=== PATIENT | female | born 1990 | race Caucasian/White ===

== ENCOUNTER 2024-03-10 21:20 | Emergency (ER) | payer OTHER ==
[2024-03-10 21:30] VITALS: BMI 34.3
[2024-03-10 23:13] VITALS: BP 114/63; PULSE 74; RESP 18; TEMP 98
[2024-03-24] MEDS ORDERED: OXYTOCIN 20 UNITS in 0.9% NS 20 UNIT/1,000 ML INFUS.BAG IV ONE (16:48)
== END 2024-03-10 23:50 | disposition home or self-care (01) ==
LOC: JERFT 21:20 → JER 21:20
DX: O9A.213 Injury, poisoning and certain other consequences of external causes complicating pregnancy, third trimester (principal); O99.891 Other specified diseases and conditions complicating pregnancy; M25.561 Pain in right knee; M25.461 Effusion, right knee; V00.141A Fall from scooter (nonmotorized), initial encounter; Z3A.36 36 weeks gestation of pregnancy
CPT/HCPCS: 73562-TC-RT-FY; 99283-25

== ENCOUNTER 2024-03-21 10:22 | Inpatient (IN) | payer OTHER ==
[2024-03-21 11:07] VITALS: BMI 33.3
[2024-03-21 11:45] LABS: BASO % 0.5 % (0-2.0); EOS % 1.3 % (0-4.5); HEMATOCRIT 30.5 % (32.4-45.2); HEMOGLOBIN 10.6 GM/dL (10.7-15.3); LYMPH % 28.6 % (8-40); MCH 31.3 pg (25.7-33.7); MCHC 34.8 g/dl (32.0-36.0); MEAN PLT VOLUME 7.6 fl (7.5-11.1); MONO % 10.3 % (3.8-10.2); NEUT % 59.3 % (42.8-82.8); PLATELET COUNT 251 10^3/uL (134-434); RBC 3.39 M/mm3 (3.60-5.2); RDW 12.9 % (11.6-15.6); WHITE BLOOD COUNT 5.2 K/mm3 (4.0-10.0)
[2024-03-21 12:04] LABS: POTASSIUM 3.5 mmol/L (3.5-5.1)
[2024-03-21 12:06] LABS: ALBUMIN 2.3 g/dl (3.4-5.0); BLOOD UREA NITROGEN 6.9 mg/dL (7-18); CALCIUM 8.1 mg/dL (8.5-10.1)
[2024-03-21 12:09] LABS: CREATININE 0.5 mg/dL (0.55-1.3)
[2024-03-21 12:11] LABS: BILIRUBIN,TOTAL 0.6 mg/dL (0.2-1); TOT PROT 5.2 g/dl (6.4-8.2)
[2024-03-21 20:30] VITALS: RESP 18
[2024-03-21 21:16] LABS: BASO % 0.5 % (0-2.0); EOS % 1.2 % (0-4.5); HEMATOCRIT 31.9 % (32.4-45.2); HEMOGLOBIN 10.9 GM/dL (10.7-15.3); LYMPH % 28.2 % (8-40); MCH 30.9 pg (25.7-33.7); MCHC 34.1 g/dl (32.0-36.0); MEAN CELL VOLUME 90.7 fl (80-96); MONO % 7.2 % (3.8-10.2); NEUT % 62.9 % (42.8-82.8); PLATELET COUNT 267 10^3/uL (134-434); RBC 3.52 M/mm3 (3.60-5.2); RDW 12.8 % (11.6-15.6)
[2024-03-21 21:21] LABS: INR 0.98 (0.83-1.09); PROTHROMBIN TIME (PATIENT) 11.3 SEC (9.7-13.0)
[2024-03-21 21:24] LABS: ACTIVATED PTT 29.9 SECONDS (25.2-36.5)
[2024-03-21] MEDS: LACTATED RINGERS SOLUTION 1,000 ML IV SCH (21:36)
[2024-03-21 21:46] LABS: POTASSIUM 3.3 mmol/L (3.5-5.1)
[2024-03-21 21:48] LABS: CALCIUM 7.9 mg/dL (8.5-10.1)
[2024-03-21 21:49] LABS: ALBUMIN 2.1 g/dl (3.4-5.0)
[2024-03-21 21:53] LABS: CREATININE 0.5 mg/dL (0.55-1.3)
[2024-03-21 21:54] LABS: BILIRUBIN,TOTAL 0.6 mg/dL (0.2-1)
[2024-03-21 22:08] LABS: HEPATITIS B SURFACE AG MATERN NON-REACTIVE (NONREACTIVE); SYPHILIS W/ RPR CONF NON-REACTIVE (NONREACTIVE)
[2024-03-21 22:33] LABS: EPI CELLS >36 /uL (0-25.1); HYALINE CASTS 2 /uL (0-3.1); PH,URINE 8.5 (5.0-8.0); URINE APPEARANCE CLOUDY; URINE BACTERIA 2829 /uL (0-1359); URINE BILIRUBIN NEGATIVE (NEGATIVE); URINE COLOR YELLOW; URINE GLUCOSE (UA) NEGATIVE (NEGATIVE); URINE KETONE TRACE (NEGATIVE); URINE LEUK ESTERASE 2+ (NEGATIVE); URINE NITRITE NEGATIVE (NEGATIVE); URINE PROTEIN NEGATIVE (NEGATIVE); URINE RBC 12 /uL (0-23.9); URINE WBC 50 /uL (0-25.8)
[2024-03-21 22:36] LABS: HIV INTERPRETATION NEGATIVE (NEGATIVE)
[2024-03-21 22:39] LABS: METHADONE, UR NEGATIVE (NEGATIVE); OPIATES, URI NEGATIVE (NEGATIVE); PHENCYCLIDINE,URINE NEGATIVE (NEGATIVE); URINE AMPHETAMINES NEGATIVE (NEGATIVE); URINE BARBITURATES NEGATIVE (NEGATIVE); URINE BENZODIAZEPINES NEGATIVE (NEGATIVE)
[2024-03-21 22:51] LABS: COCAINE, UR POSITIVE (NEGATIVE)
[2024-03-22 09:06] VITALS: BP 112/81; PULSE 98; TEMP 98
[2024-03-22] MEDS ORDERED: BISACODYL 10 MG SUPP.RECT PR PRN (09:43)
[2024-03-22] MEDS ORDERED: SENNOSIDES/DOCUSATE COMBO (SENNA PLUS) TABLET (UD) PO PRN (09:52)
[2024-03-22] MEDS: PRENATAL VITAMINS W/ FOLIC ACID TABLET (FP) PO SCH (10:12)
[2024-03-22] MEDS: DOCUSATE SODIUM 100 MG CAPSULE (FP) PO SCH (10:12)
[2024-03-22] MEDS: NITROFURANTOIN MONOHYD/M-CRYST 100 MG CAPSULE PO SCH (10:39)
== END 2024-03-22 12:26 | disposition home or self-care (01) | DRG 560 ==
LOC: JER 10:22 → JERBED 18:13 → JLDR 19:54 → J3W 23:40
PROVIDERS: ADMIT Obstetrics & Gynecology Obstetrics; ATTEND Obstetrics & Gynecology Obstetrics
DX: O99.324 Drug use complicating childbirth (principal); F11.23 Opioid dependence with withdrawal; Z3A.33 33 weeks gestation of pregnancy
CPT/HCPCS: 36415; 76819-TC; 80053; 80307; 81003; 84702; 85025; 85610; 85730; 86780; 86803; 86850; 86900; 86901; 87340; 87389; 93005; 93010; 99285-25

== ENCOUNTER 2024-03-24 16:30 | Inpatient (IN) | payer OTHER ==
[2024-03-24] MEDS: OXYTOCIN 20 UNITS in 0.9% NS 20 UNIT/1,000 ML INFUS.BAG IV SCH (17:00)
[2024-03-24] MEDS ORDERED: ACETAMINOPHEN 325 MG TABLET (FP) ONE (17:20)
[2024-03-24] MEDS ORDERED: IBUPROFEN 600 MG TABLET (FP) PO ONE (17:21)
[2024-03-24] MEDS: IBUPROFEN 600 MG TABLET (FP) PO PRN (17:30)
[2024-03-24] MEDS: ACETAMINOPHEN 325 MG TABLET (FP) PO PRN (17:30)
[2024-03-24 17:56] VITALS: BMI 32.3
[2024-03-24 20:05] VITALS: RESP 18
[2024-03-24 21:05] LABS: METHADONE, UR NEGATIVE (NEGATIVE); PHENCYCLIDINE,URINE NEGATIVE (NEGATIVE); URINE BENZODIAZEPINES NEGATIVE (NEGATIVE)
[2024-03-24 21:06] LABS: OPIATES, URI NEGATIVE (NEGATIVE); URINE AMPHETAMINES NEGATIVE (NEGATIVE); URINE BARBITURATES NEGATIVE (NEGATIVE)
[2024-03-24 21:08] LABS: COCAINE, UR POSITIVE (NEGATIVE)
[2024-03-25 09:01] LABS: BASO % 0.2 % (0-2.0); EOS % 0.7 % (0-4.5); HEMOGLOBIN 10.1 GM/dL (10.7-15.3); LYMPH % 13.7 % (8-40); MCH 31.2 pg (25.7-33.7); MEAN PLT VOLUME 8.6 fl (7.5-11.1); NEUT % 79.4 % (42.8-82.8); PLATELET COUNT 226 10^3/uL (134-434); RBC 3.25 M/mm3 (3.60-5.2); RDW 12.7 % (11.6-15.6); WHITE BLOOD COUNT 10.6 K/mm3 (4.0-10.0)
[2024-03-25] MEDS: NITROFURANTOIN MONOHYD/M-CRYST 100 MG CAPSULE PO SCH (10:30)
[2024-03-26] MEDS: medroxyPROGESTERone ACET 150 MG/1 ML VIAL IM ONE (08:31)
[2024-03-26 08:39] VITALS: BP 126/87; PULSE 71; TEMP 98.3
== END 2024-03-26 08:30 | disposition home or self-care (01) | DRG 560 ==
LOC: JLDR 16:30 → J3W 20:08
PROVIDERS: ADMIT Student in an Organized Health Care Education/Training Program; ATTEND Student in an Organized Health Care Education/Training Program
PROC: 10E0XZZ Delivery of Products of Conception, External Approach (ICD-10-PCS; principal; 2024-03-24)
DX: Z39.0 Encounter for care and examination of mother immediately after delivery (principal); O60.14X0 Preterm labor third trimester with preterm delivery third trimester, not applicable or unspecified; O99.323 Drug use complicating pregnancy, third trimester; F14.10 Cocaine abuse, uncomplicated; Z3A.34 34 weeks gestation of pregnancy; Z37.0 Single live birth
CPT/HCPCS: 36415; 59409; 80307; 85025